=== PATIENT | female | born 2000 | race Two or more races ===

== ENCOUNTER 2024-07-26 09:50 | Inpatient (IN) | payer OTHER ==
[~2024-07-26] VITALS: Ht 121.9 cm; Wt 61.2 kg
[2024-07-26 08:00] VITALS: BP 99/64; O2SAT 97
[2024-07-26] MEDS ORDERED: BETAMETHASONE ACETATE,SOD PHOS 30 MG/5 ML ML ONE (09:52)
[2024-07-26] MEDS ORDERED: BETAMETHASONE ACETATE,SOD PHOS 30 MG/5 ML ML IM SCH (10:15)
[2024-07-26] MEDS ORDERED: RINGERS SOLUTION,LACTATED 1,000 ML IV SCH (10:15)
[2024-07-26] MEDS ORDERED: MAGNESIUM SULFATE IN WATER 500 ML IV SCH (10:15)
[2024-07-26] MEDS ORDERED: PRENATAL TABLE1 EAC1 PO (10:48)
[2024-07-26] MEDS ORDERED: IRON18 M1 PO (10:49)
[2024-07-26 11:06] LABS: HEMATOCRIT 34.1 % (36.0-45.00); HEMOGLOBIN 11.5 g/dL (12.0-15.00); MEAN CELL VOLUME 86.2 fL (80.00-100.00); MEAN CORPUSCULAR HGB CONC 33.6 g/dl (32.0-36.0); PLATELET COUNT 221 K/uL (150-450); RED BLOOD COUNT 3.96 M/uL (4.00-6.00); RED CELL DISTRIBUTION WIDTH 14.3 % (11.5-14.5)
[2024-07-26 11:29] LABS: INR < 0.93; PARTIAL THROMBOPLASTIN TIME 27.6 SECONDS (22.0-34.0)
[2024-07-26 11:50] VITALS: BP 94/56
[2024-07-26 15:13] VITALS: BP 93/55
[2024-07-26 19:52] VITALS: BP 97/59
[2024-07-26 22:56] VITALS: BP 100/60
[2024-07-27 03:45] VITALS: BP 92/54; O2SAT 100
[2024-07-27 07:14] VITALS: BP 101/68
[2024-07-27] MEDS ORDERED: ACETAMINOPHEN 500 MG GEL..CAP PO ONE (07:35)
[2024-07-27] MEDS ORDERED: ACETAMINOPHEN 500 MG GEL..CAP PO PRN (07:45)
[2024-07-27 12:00] VITALS: BP 96/60
[2024-07-27 15:04] VITALS: BP 91/56
[2024-07-27 19:55] VITALS: BP 95/54
[2024-07-27 23:08] VITALS: BP 93/56; O2SAT 100
[2024-07-28 03:47] VITALS: BP 91/44
[2024-07-28 07:17] VITALS: BP 109/61
[2024-07-28] MEDS ORDERED: NIFEDIPINE 30 MG TAB.SA.OSM PO ONE (10:51)
[2024-07-28] MEDS ORDERED: NIFEDIPINE 30 MG TAB.SA.OSM PO SCH (11:00)
[2024-07-28 11:20] VITALS: BP 96/60
[2024-07-28 17:31] VITALS: BP 96/60
[2024-07-28 20:00] VITALS: BP 92/55
[2024-07-28 23:11] VITALS: BP 106/63
[2024-07-29] VITALS: BP 96/59
[2024-07-29] MEDS ORDERED: Procardia Xl 30MG TA PO (07:13)
[2024-07-29 08:26] VITALS: BP 96/59
== END 2024-07-29 09:20 | disposition home or self-care (01) | DRG 833 ==
LOC: LDR 09:50 → OB/GYN 07-28 09:45
PROVIDERS: ADMIT Obstetrics & Gynecology Maternal & Fetal Medicine; ATTEND Obstetrics & Gynecology Maternal & Fetal Medicine
PROC: 4A1HXCZ Monitoring of Products of Conception, Cardiac Rate, External Approach (ICD-10-PCS; principal; 2024-07-26)
DX: O60.03 Preterm labor without delivery, third trimester (principal); Z3A.35 35 weeks gestation of pregnancy

== ENCOUNTER → 2024-08-10 | Outpatient (CLI) | payer OTHER ==
[~2024-08-10] MED LIST: IRON18 M1 PO; PRENATAL TABLE1 EAC1 PO; Procardia Xl 30MG TA PO
== END | disposition home or self-care (01) ==
LOC: NST 18:52
PROVIDERS: ATTEND Obstetrics & Gynecology
DX: Z34.83 Encounter for supervision of other normal pregnancy, third trimester (principal)

== ENCOUNTER 2024-08-13 14:17 | Inpatient (IN) | payer OTHER ==
[~2024-08-13] VITALS: Ht 149.9 cm; Wt 2.7 kg
[2024-08-13 14:43] VITALS: BP 92/58
[2024-08-13] MEDS ORDERED: URSODIOL200 MG PO (15:03)
[2024-08-13 15:10] VITALS: BP 110/69
[2024-08-13] MEDS ORDERED: RINGERS SOLUTION,LACTATED 1,000 ML IV SCH (15:30)
[2024-08-13 15:36] LABS: URINE APPEARANCE Clear; URINE BILIRRUBIN Negative (NEGATIVE); URINE BLOOD Negative; URINE COLOR Yellow; URINE GLUCOSE Negative (NEGATIVE); URINE KETONE 15 (NEGATIVE); URINE LEUKOCYTE Large; URINE NITRATE Negative; URINE PROTEIN Negative (NEGATIVE)
[2024-08-13 15:37] LABS: URINE EPITHELIAL CELLS 65.8 uL (0.0-38.8); URINE RBC 13.2 uL (0.0-20.8); URINE WBC 102.5 uL (0.0-23.2)
[2024-08-13 15:41] LABS: BASO % 0.4 % (0.1-1.2); EOS % 1.3 % (0.7-7.0); HEMATOCRIT 37.6 % (34.1-44.9); HEMOGLOBIN 12.2 g/dL (11.2-15.7); LYMPH # 1.28 (1.18-3.74); LYMPH % 16.2 % (19.3-53.1); MEAN CORPUSCULAR HEMOGLOBIN 28.6 pg (25.6-32.2); MONO # 0.47 (0.24-0.82); NEUT # 5.97 (1.56-6.13); NEUT % 75.7 % (34.0-71.1); PLATELET COUNT 229 K/uL (163-369); RED BLOOD COUNT 4.26 M/uL (3.93-5.22); RED CELL DISTRIBUTION WIDTH 14.3 % (11.6-14.4)
[2024-08-13 15:53] LABS: INR < 0.93; PARTIAL THROMBOPLASTIN TIME 28.8 SECONDS (22.0-34.0); PROTHROMBIN TIME 10.2 SECONDS (9.0-11.5)
[2024-08-13 15:54] LABS: COVID-19 AG NEGATIVE (NEGATIVE)
[2024-08-13 15:56] LABS: URINE CAST 1.32 uL (0.0-1.40)
[2024-08-13 15:57] LABS: BILIRUBIN TOTAL 0.35 mg/dL (0.3-1.2); CREATININE SERUM 0.52 mg/dL (0.55-1.02); GFR 143.68; GLOBULINA 3.6 G/DL (2.4-3.5); TOTAL PROTEIN 6.6 gm/dL (6.4-8.2)
[2024-08-13 19:42] VITALS: BP 108/72
[2024-08-13] MEDS ORDERED: INTEGRA PLUS PO SCH (21:00)
[2024-08-13 23:28] VITALS: BP 110/64
[2024-08-14 03:59] VITALS: BP 105/64
[2024-08-14 06:50] VITALS: BP 100/65; O2SAT 98
[2024-08-14] MEDS ORDERED: URSODIOL 300 MG CAPSULE PO SCH ×2 (09:00)
[2024-08-14] MEDS ORDERED: URSODIOL 300 MG PO SCH (09:00)
[2024-08-14] MEDS ORDERED: IRON FUM,PS/FOLIC/BCOMP,C NO.9 1 CAP CAPSULE PO SCH ×2 (09:00→21:00)
[2024-08-14 11:36] VITALS: BP 105/72
[2024-08-14] MEDS ORDERED: OXYTOCIN 10 UNITS/ML VIAL ONE (12:57)
[2024-08-14] MEDS ORDERED: ERYTHROMYCIN BASE OPHT 1GM EACH TUBE OP ONE (12:58)
[2024-08-14] MEDS ORDERED: CEFAZOLIN SODIUM 1,000 MG VIAL ONE (13:23)
[2024-08-14] MEDS ORDERED: MORPHINE SULFATE 4 MG/ML VIAL IV ONE ×2 (15:20→16:30)
[2024-08-14] MEDS ORDERED: GABAPENTIN 300 MG CAPSULE PO SCH (17:00)
[2024-08-14] MEDS ORDERED: MORPHINE SULFATE 4 MG/ML CARTRIDGE IV PRN (17:00)
[2024-08-14] MEDS ORDERED: SIMETHICONE 125 MG CAPSULE PO SCH (17:00)
[2024-08-14] MEDS ORDERED: RINGERS SOLUTION,LACTATED 1,000 ML IV SCH (17:00)
[2024-08-14] MEDS ORDERED: OXYTOCIN 1,000 ML IV ONE (17:00)
[2024-08-14] MEDS ORDERED: KETOROLAC TROMETHAMINE 30 MG VIAL ONE (17:17)
[2024-08-14] MEDS ORDERED: KETOROLAC TROMETHAMINE 30 MG VIAL IV SCH (18:00)
[2024-08-14] MEDS ORDERED: ACETAMINOPHEN 500 MG GEL..CAP PO SCH (18:00)
[2024-08-14] MEDS ORDERED: ONDANSETRON HCL 2 MG/ML VIAL IV SCH (18:00)
[2024-08-14 20:24] VITALS: BP 116/74
[2024-08-15] VITALS: BP 100/61
[2024-08-15 07:06] LABS: BASO % 0.2 % (0.1-1.2); EOS # 0.07 (0.04-0.54); EOS % 0.6 % (0.7-7.0); HEMATOCRIT 27.8 % (34.1-44.9); LYMPH # 1.29 (1.18-3.74); LYMPH % 11.5 % (19.3-53.1); MEAN CORPUSCULAR HEMOGLOBIN 28.8 pg (25.6-32.2); MONO # 0.93 (0.24-0.82); MONO % 8.3 % (4.7-12.5); NEUT # 8.89 (1.56-6.13); PLATELET COUNT 155 K/uL (163-369); RED BLOOD COUNT 3.23 M/uL (3.93-5.22); RED CELL DISTRIBUTION WIDTH 13.9 % (11.6-14.4)
[2024-08-15 07:22] LABS: HEMOGLOBIN 9.3 g/dL (11.2-15.7)
[2024-08-15 08:00] VITALS: BP 98/65
[2024-08-15] MEDS ORDERED: OxyCODONE HCL 5 MG TABLET (ROXICODONE) PO PRN (08:00)
[2024-08-15] MEDS ORDERED: KETOROLAC TROMETHAMINE 10 MG TABLET PO SCH (08:00)
[2024-08-15] MEDS ORDERED: DOCUSATE SODIUM 100MG CAP PO SCH (09:00)
[2024-08-15 16:45] VITALS: BP 94/60
[2024-08-16 01:53] VITALS: BP 110/72
[2024-08-16 08:00] VITALS: BP 97/66
== END 2024-08-16 14:46 | disposition home or self-care (01) | DRG 788 ==
LOC: LDR 14:17 → O/R 08-14 14:39 → OB/GYN 08-14 14:44
PROVIDERS: Obstetrics & Gynecology; ADMIT Obstetrics & Gynecology Gynecology; ATTEND Obstetrics & Gynecology Gynecology
PROC: 4A1HXCZ Monitoring of Products of Conception, Cardiac Rate, External Approach (ICD-10-PCS; 2024-08-13)
PROC: 10D00Z1 Extraction of Products of Conception, Low, Open Approach (ICD-10-PCS; principal; 2024-08-14 13:30)
DX: O99.62 Diseases of the digestive system complicating childbirth (principal); K80.20 Calculus of gallbladder without cholecystitis without obstruction; O32.2XX0 Maternal care for transverse and oblique lie, not applicable or unspecified; Z3A.37 37 weeks gestation of pregnancy; Z37.0 Single live birth

== ENCOUNTER 2024-09-05 23:31 | Emergency (ER) | payer OTHER ==
[~2024-09-05] VITALS: Ht 149.9 cm; Wt 53.5 kg
[~2024-09-05 23:31] MED LIST changes: +URSODIOL200 MG PO
[2024-09-05 23:46] VITALS: BP 112/69; O2SAT 99
[2024-09-06 01:26] LABS: BASO % 0.7 % (0.1-1.2); EOS # 0.23 (0.04-0.54); EOS % 2.6 % (0.7-7.0); HEMATOCRIT 35.8 % (34.1-44.9); HEMOGLOBIN 11.7 g/dL (11.2-15.7); LYMPH # 2.48 (1.18-3.74); LYMPH % 27.9 % (19.3-53.1); MEAN CORPUSCULAR HEMOGLOBIN 28.2 pg (25.6-32.2); MONO # 0.55 (0.24-0.82); MONO % 6.2 % (4.7-12.5); NEUT # 5.56 (1.56-6.13); NEUT % 62.4 % (34.0-71.1); PLATELET COUNT 346 K/uL (163-369); RED BLOOD COUNT 4.15 M/uL (3.93-5.22)
[2024-09-06 01:51] LABS: INR 0.99; PARTIAL THROMBOPLASTIN TIME 29.6 SECONDS (22.0-34.0); PROTHROMBIN TIME 10.8 SECONDS (9.0-11.5)
[2024-09-06 01:55] LABS: ALBUMIN 3.5 gm/dL (3.4-5.0); ALKALINE PHOSPHATASE 99 U/L (50-136); ALT/SGPT 32 U/L (12-78); AMYLASE 71 U/L (25-115); ANION GAP 11 (10.0-20.0); AST/SGOT 20 U/L (15-37); BILIRUBIN TOTAL 0.16 mg/dL (0.3-1.2); BILIRUBIN,CONJUGATED < 0.10 mg/dL (0.0-0.2); BILIRUBIN,UNCONJUGATED 0.06 mg/dL (0.0-0.6); BLOOD UREA NITROGEN 24 mg/dL (7-18); BUN CREA RATIO 38 (7.0-25.0); CALCIUM 9.1 mg/dL (8.5-10.1); CARBON DIOXIDE 27 mEq/L (21-32); CHLORIDE 108 mmol/L (98-107); CREATININE SERUM 0.64 mg/dL (0.55-1.02); GFR 113.06; GLOBULINA 3.4 G/DL (2.4-3.5); GLUCOSE FASTING 94 mg/dL (65-100); LIPASE 27 U/L (13-75); OSMOLALITY SERUM 287 MOSM/KG (275-295); POTASSIUM 3.89 mEq/L (3.5-5.1); SODIUM 142 mmol/L (136-145); TOTAL PROTEIN 6.9 gm/dL (6.4-8.2)
== END 2024-09-06 03:20 | disposition home or self-care (01) ==
LOC: ER 23:31
DX: O72.1 Other immediate postpartum hemorrhage (principal)